=== PATIENT | male | born 1955 | race Caucasian/White ===

== ENCOUNTER 2017-07-22 09:40 | Day surgery (SDC) | payer OTHER ==
[~2017-07-22 09:40] MED LIST: EPINEPHRINE INJ 1 MG/10 ML DISP.SYRIN ONE; FENTANYL CITRATE INJ/PF 100 MCG/2 ML AMPUL ONE; FLUMAZENIL INJ 0.5 MG/5 ML VIAL ONE; GLUCAGON,HUMAN RECOMB 1 MG INJ ONE; GLYCOPYRROLATE INJ 0.4 MG/2 ML VIAL ONE; NALOXONE HCL INJ/PF 0.4 MG/1 ML SDV ONE; ONDANSETRON HCL INJ/PF 4 MG/2 ML SDV ONE
[2017-07-22 11:11] LABS: HEMATOCRIT 46.1 % (37.9-51.0); HEMOGLOBIN 16.1 g/dL (13.5-17.0); HGB HCT DIFFERENCE 2.2; MEAN CORPUSCULAR HEMOGLOBIN 36.6 pg (27.0-33.4); MEAN CORPUSCULAR VOLUME 105 fl (80-97); RED BLOOD COUNT 4.41 10^6/uL (4.35-5.55); RED CELL DISTRIBUTION WIDTH 13.2 % (11.5-14.0); WHITE BLOOD COUNT 6.2 10^3/uL (4.0-10.5)
[2017-07-22] MEDS: MIDAZOLAM 2 MG/2 ML INJ ONE ×2 (11:29→11:35)
--- NOTE | 2017-07-22 12:08 | Operative Report ---
Operative Report DATE OF SURGERY: 07/22/17 PREOPERATIVE DIAGNOSIS: History of colon polyps POSTOPERATIVE DIAGNOSIS: Cecal mucosal irregularity, sigmoid colon polyp, rectal polyp. OPERATION: Colonoscopy with snare polypectomies 2. Cecal biopsy 1. SURGEON: TANA HERRERA ANESTHESIA: Moderate Sedation TISSUE REMOVED OR ALTERED: Cecal mucosal irregularity biopsied. Sigmoid colon half centimeters sessile polyp. Rectal half centimeter sessile polyp. COMPLICATIONS: None ESTIMATED BLOOD LOSS: Minimal INTRAOPERATIVE FINDINGS: Subtle mucosal irregularity of the cecum near the appendiceal orifice but not a distinct mass nor polyp. Half centimeter sessile polyp at the distal sigmoid colon. Half centimeter sessile polyp at the mid rectum behind a fold. PROCEDURE: Informed consent was obtained. Patient was brought to the endoscopy suite. IV sedation with Versed and fentanyl was administered. Digital rectal exam revealed no palpable perianal masses. Endoscope was passed via the patient's anus it was fed to the cecum. Bowel prep was good. Visualization was good. At the cecum around the appendiceal orifice there was a about 2-3 cm region of subtle mucosal irregularity but not a distinct mass. This region was biopsied. Remainder of the cecum and the right colon and transverse colon and descending colon appeared normal. At the distal sigmoid colon near the sigmoid rectal junction there was 1/2 cm sessile polyp tucked behind a fold. It was snare polypectomy and the specimen retrieved. A similar appearing polyp was seen at the mid rectum stuck behind a fold and it was snare polypectomy need and specimen retrieved. Patient tolerated procedure well with no apparent complications and was taken to the recovery area in stable condition. Status post snare polypectomies of 2 polyps. Status post biopsy of the cecum. I will follow-up with the patient with the pathology reports.
--- NOTE | 2017-07-22 12:09 | PDOC DISCHARGE SUMMARY ---
Discharge Summary (SDC) - Discharge Final Diagnosis: Colon polyps. Cecal mucosal irregularity. Date of Surgery: 07/22/17 Discharge Date: 07/22/17 Condition: Good Treatment or Instructions: Underwent colonoscopy with cecal biopsy and snare polypectomy of sigmoid colon and rectal polyps. May discharge patient home when met discharge criteria. Follow-up with me in 2 weeks. Discharge Diet: As Tolerated Discharge Activity: Activity As Tolerated Report the Following to Your Physician Immediately: Increase in Pain, Unusual Bleeding
[2017-07-22 12:52] VITALS: BP 127/78
== END 2017-07-22 12:55 | disposition home or self-care (01) ==
LOC: END 09:40
PROVIDERS: ATTEND Surgery
PROC: 0DBN8ZX Excision of Sigmoid Colon, Via Natural or Artificial Opening Endoscopic, Diagnostic (ICD-10-PCS; 2017-07-22)
PROC: 0DBP8ZX Excision of Rectum, Via Natural or Artificial Opening Endoscopic, Diagnostic (ICD-10-PCS; 2017-07-22)
PROC: 0DBH8ZX Excision of Cecum, Via Natural or Artificial Opening Endoscopic, Diagnostic (ICD-10-PCS; principal; 2017-07-22 11:15)
DX: Z12.11 Encounter for screening for malignant neoplasm of colon (principal); K63.5 Polyp of colon; K63.89 Other specified diseases of intestine
CPT/HCPCS: 45380; 36415; 85027; 88305 ×2; J2250; J3010; J0171; J1610; J2310; J2405; J3490

== ENCOUNTER 2020-05-04 15:17 | Emergency (ER) | payer OTHER, MEDICARE ==
[2020-05-04] MEDS ORDERED: AMLODIPINE BESYLATE 5 MG TABLET PO ONE (15:36)
--- NOTE | 2020-05-04 15:39 | ER Document Report ---
ED Medical Screen (RME) - General Chief Complaint: Blood Pressure Problem Stated Complaint: BLOOD PRESSURE ISSUE Time Seen by Provider: 05/04/20 15:34 Notes: HPI: 64-year-old male presenting for evaluation of hypertension. Has no other physical complaints. States that over the last year or so when he has gone for different physicals and exams they have told of his blood pressure was slightly elevated today he went to the dentist and it was significantly elevated and they sent him to the emergency department for evaluation PHYSICAL EXAMINATION: Lung sounds are clear to auscultation regular rate and rhythm. Alert and oriented x3 I have greeted and performed a rapid initial assessment of this patient. A comprehensive ED assessment and evaluation of the patient, analysis of test results and completion of medical decision making process will be conducted by an additional ED providers. TRAVEL OUTSIDE OF THE [place] IN LAST 30 DAYS: No - Related Data Allergies/Adverse Reactions: No Known Allergies Allergy (Verified 05/04/20 15:33) Past Medical History - Social History Chew tobacco use (# tins/day): No Frequency of alcohol use: Heavy Drug Abuse: None - Past Medical History Cardiac Medical History: Denies: Hx Coronary Artery Disease, Hx Heart Attack, Hx Hypertension Pulmonary Medical History: Denies: Hx Asthma, Hx Bronchitis, Hx COPD, Hx Pneumonia Neurological Medical History: Denies: Hx Cerebrovascular Accident, Hx Seizures GI Medical History: Denies: Hx Hepatitis, Hx Hiatal Hernia, Hx Ulcer Musculoskeltal Medical History: Denies Hx Arthritis Infectious Medical History: Denies: Hx Hepatitis Past Surgical History: Denies: Hx Open Heart Surgery, Hx Pacemaker - Immunizations Hx Diphtheria, Pertussis, Tetanus Vaccination: - UNSURE Physical Exam - Vital signs Vitals: Temp Pulse Resp BP Pulse Ox 99.0 F 91 20 196/113 H 98 05/04/20 15:23 05/04/20 15:23 05/04/20 15:23 05/04/20 15:23 05/04/20 15:23 Course - Vital Signs Vital signs: Temp Pulse Resp BP Pulse Ox 99.0 F 91 20 196/113 H 98 05/04/20 15:34 05/04/20 15:23 05/04/20 15:23 05/04/20 15:23 05/04/20 15:23
--- NOTE | 2020-05-04 16:08 | RADIOLOGY REPORT (SQ) ---
EXAM DESCRIPTION: CHEST 2 VIEWS IMAGES COMPLETED DATE/TIME: 05/04/2020 3:49 pm REASON FOR STUDY: HTN COMPARISON: None. EXAM PARAMETERS: NUMBER OF VIEWS: two views TECHNIQUE: Digital Frontal and Lateral radiographic views of the chest acquired. RADIATION DOSE: NA LIMITATIONS: none FINDINGS: LUNGS AND PLEURA: No opacities, masses or pneumothorax. No pleural effusion. MEDIASTINUM AND HILAR STRUCTURES: No masses or contour abnormalities. HEART AND VASCULAR STRUCTURES: Heart normal size. No evidence for failure. BONES: No acute findings. HARDWARE: None in the chest. OTHER: No other significant finding. IMPRESSION: NO ACUTE RADIOGRAPHIC FINDING IN THE CHEST. TECHNICAL DOCUMENTATION: JOB ID: [id number] 2010 [employer]- All Rights Reserved Reading location - IP/workstation name: [email or web address]
[2020-05-04 16:29] LABS: ALBUMIN 4.4 g/dL (3.5-5.0); ALKALINE PHOSPHATASE 74 U/L (38-126); ANION GAP 6 (5-19); ASPARTATE AMINO TRANSFERASE 37 U/L (17-59); BILIRUBIN,TOTAL 0.7 mg/dL (0.2-1.3); BLOOD UREA NITROGEN 17 mg/dL (7-20); CALCIUM 9.2 mg/dL (8.4-10.2); CARBON DIOXIDE 33 mmol/L (22-30); CHLORIDE 96 mmol/L (98-107); GLUCOSE 123 mg/dL (75-110); TOTAL PROTEIN 7.6 g/dL (6.3-8.2)
[2020-05-04 16:36] LABS: APPEARANCE,URINE SLIGHTLY-CLOUDY; BILIRUBIN,URINE NEGATIVE (NEGATIVE); COLOR,URINE AMBER; GLUCOSE, URINE NEGATIVE (NEGATIVE); KETONES,URINE NEGATIVE (NEGATIVE); LEUKOCYTE ESTERASE,URINE NEGATIVE (NEGATIVE); NITRITE,URINE NEGATIVE (NEGATIVE); PROTEIN,URINE 30 mg/dL (NEGATIVE); URINE SPECIFIC GRAVITY 1.027
[2020-05-04 17:54] LABS: ABSOLUTE EOSINOPHILS # (AUTO) 0.1 10^3/uL (0.0-0.6); ABSOLUTE MONOCYTES (AUTO) 0.7 10^3/uL (0.1-1.4); BASOPHILS % (AUTO) 0.4 % (0-2); EOSINOPHILS % (AUTO) 1.6 % (0-6); HEMATOCRIT 45.8 % (37.9-51.0); HEMOGLOBIN 16.2 g/dL (13.5-17.0); LYMPHOCYTES % (AUTO) 25.2 % (13-45); MEAN CORPUSCULAR HEMOGLOBIN 36.6 pg (27.0-33.4); MEAN CORPUSCULAR HGB CONC 35.4 g/dL (32.0-36.0); MEAN CORPUSCULAR VOLUME 103 fl (80-97); PLATELET COUNT 156 10^3/uL (150-450); RED BLOOD COUNT 4.44 10^6/uL (4.35-5.55); RED CELL DISTRIBUTION WIDTH 12.9 % (11.5-14.0); SEGMENTED NEUTROPHILS % (AUTO) 63.8 % (42-78); TOTAL CELLS COUNTED % (AUTO) 100 %; WHITE BLOOD COUNT 7.8 10^3/uL (4.0-10.5)
--- NOTE | 2020-05-04 18:00 | ER Document Report ---
Entered by KATYA MYERS SCRIBE 05/04/20 [id number] Acting as scribe for:ARJUN REGAN MD ED Blood Pressure Problem - General Chief Complaint: High Blood Pressure Stated Complaint: BLOOD PRESSURE ISSUE Time Seen by Provider: 05/04/20 15:34 Primary Care Provider: TIO GAY PA-C [Primary Care Provider] - Follow up as needed Mode of Arrival: Ambulatory Information source: Patient Notes: This 64 year old male patient presents to the emergency department today with complaints of elevated blood pressures. Patient reports that he was at the dentist today and his pressures were 200s/100s. Patient states that he goes to the dentist every 3 months and he has noticed that his pressures have been slowly elevating for his last several visits. Patient does mention that he gets nervous around doctors. Patient denies a strong family history of HTN. Patient is completely asymptomatic. He is a runner and likes to exercise. He has no chest pain, no shortness of breath, no other symptoms related to his elevated blood pressure. Reviewing old records shows that his blood pressure was high when he was seen here in 2017 for endoscopy. He stated that was due to being at the hospital and around quite coats. He has not had his blood pressure checked in the last few years except for when he goes to the dentist office. TRAVEL OUTSIDE OF THE [place] IN LAST 30 DAYS: No - Related Data Allergies/Adverse Reactions: No Known Allergies Allergy (Verified 05/04/20 15:33) Past Medical History - General Information source: Patient - Social History Smoking Status: Current Every Day Smoker Cigarette use (# per day): Yes - 1/2 ppd Chew tobacco use (# tins/day): No Frequency of alcohol use: Heavy - few beers a night Drug Abuse: None Lives with: Family Family History: Reviewed & Not Pertinent Patient has homicidal ideation: No Past Surgical History: Reports: Hx Herniorrhaphy - Umbilical - Immunizations Hx Diphtheria, Pertussis, Tetanus Vaccination: - UNSURE Hx Pneumococcal Vaccination: 07/27/15 Review of Systems - Review of Systems Constitutional: See HPI, Other - elevated bp EENT: No symptoms reported Cardiovascular: No symptoms reported Respiratory: No symptoms reported Gastrointestinal: No symptoms reported Genitourinary: No symptoms reported Male Genitourinary: No symptoms reported Musculoskeletal: No symptoms reported Skin: No symptoms reported Hematologic/Lymphatic: No symptoms reported Neurological/Psychological: No symptoms reported -: Yes All other systems reviewed and negative Physical Exam - Vital signs Vitals: Temp Pulse Resp BP Pulse Ox 99.0 F 91 20 196/113 H 98 05/04/20 15:23 05/04/20 15:23 05/04/20 15:23 05/04/20 15:23 05/04/20 15:23 - Notes Notes: Physical Exam: General: Alert, appears well , pacing around the room initially. HEENT: Normocephalic. Atraumatic. PERRL. Extraocular movements intact. Oropharynx clear. Neck: Supple. Non-tender. Respiratory: No respiratory distress. Clear and equal breath sounds bilaterally. Cardiovascular: Regular rate and rhythm. Abdominal: Normal Inspection. Non-tender. No distension. Normal Bowel Sounds. Back: No gross abnormalities. Extremities: Moves all four extremities. Upper extremities: Normal inspection. Normal ROM. Lower extremities: Normal inspection. No edema. Normal ROM. Neurological: Normal cognition. AAOx4. Normal speech. Psychological: Appears anxious Skin: Warm. Dry. Normal color. Course - Vital Signs Vital signs: Temp Pulse Resp BP Pulse Ox 99.0 F 91 15 192/114 H 97 05/04/20 15:34 05/04/20 15:23 05/04/20 18:18 05/04/20 18:18 05/04/20 18:18 - Laboratory Result Diagrams: 05/04/20 17:26 05/04/20 15:59 Laboratory results interpreted by me: 05/04/20 05/04/20 05/04/20 15:59 15:59 17:26 MCV 103 H MCH 36.6 H Sodium 134.6 L Chloride 96 L Carbon Dioxide 33 H Glucose 123 H Urine Protein 30 H Urine Urobilinogen 2.0 H Urine Ascorbic Acid 20 H Discharge - Discharge Clinical Impression: High blood pressure Qualifiers: Hypertension type: unspecified Qualified Code(s): I10 - Essential (primary) hypertension Condition: Stable Disposition: HOME, SELF-CARE Additional Instructions: High Blood Pressure, Requiring Treatment: Your blood pressure is high. This is called "hypertension." Today's reading was_196/113 (normal is less than 140/90). Your history and exam suggest that this is not a temporary problem. You need treatment of your blood pressure. Pre-hypertension/Hypertension: The patient has been informed that they may have pre-hypertension or Hypertension based on a blood pressure reading in the emergency department. I recommend that the patient call the primary care provider listed on their discharge instructions or a physician of their choice this wee to arrange follow up for further evaluation of possible pre- hypertension or Hypertension. If left untreated, high blood pressure greatly increases your risk of heart attack and stroke. Please don't ignore this problem. If you have blood pressure medicine but aren't using it regularly, start taking it again. Some simple things you can do to help are: Get some aerobic exercise for at least 20 minutes on a daily basis. (See your doctor before beginning any new exercise program.) Eat a low-fat diet. Lose excess weight. Avoid salty foods and avoid adding salt to any of the foods you eat. Avoid diet pills, decon gestants, "energizing" herbs, and other medicines that elevate blood pressure. There are many different medicines that treat blood pressure. If your medication causes unpleasant side effects, call your doctor. There are others you can try. Treating hypertension is a life-long investment in your health. Drink plenty of fluids throughout the day in the evening. Your urine was a little concentrated this afternoon. Take the medication as prescribed for your blood pressure. Get a blood pressure cuff and check your pressure 2-3 times a day for the next several days. If your pressure continues to run over 150 systolic, then increase the amlodipine from 5 mg to 10 mg a day. Follow-up with a primary care provider next week to reevaluate your blood pressure management. RETURN TO THE EMERGENCY ROOM IF ANY NEW OR WORSENING SYMPTOMS. Prescriptions: Amlodipine Besylate [Norvasc 5 mg Tablet] 5 mg PO DAILY #30 tablet Referrals: KENIA RUANO MD [NO LOCAL MD] - Follow up in 3-5 days I personally performed the services described in the documentation, reviewed and edited the documentation which was dictated to the scribe in my presence, and it accurately records my words and actions.
--- NOTE | 2020-05-04 18:15 | EKG REPORT ---
SEVERITY:- ABNORMAL ECG - SINUS RHYTHM PROBABLE ANTEROSEPTAL INFARCT, OLD : Confirmed by: Julien Rodriguez MD 04-May-2020 18:15:09
[2020-05-04] MEDS ORDERED: HYDRALAZINE HCL 50 MG TABLET PO ONE (18:41)
[2020-05-04 19:40] VITALS: BP 177/103
== END 2020-05-04 19:40 | disposition home or self-care (01) ==
LOC: ER 15:17
DX: I10 Essential (primary) hypertension (principal); F17.210 Nicotine dependence, cigarettes, uncomplicated
CPT/HCPCS: 36415; 71046; 80053; 81001; 84443; 85025; 93005; 93010; 99285